=== PATIENT | female | born 1935 | race Caucasian/White ===

== ENCOUNTER 2016-10-31 08:13 | Inpatient (IN) | payer MEDICARE, OTHER ==
[~2016-10-31] VITALS: Ht 160 cm; Wt 51.7 kg
[2016-10-31] MEDS ORDERED: LORA10TA75 PO (08:50)
[2016-10-31] MEDS ORDERED: POTA25TA PO (08:50)
[2016-10-31] MEDS ORDERED: CARV3.1212 PO (08:50)
[2016-10-31] MEDS ORDERED: LOSA25TA5 PO (08:50)
[2016-10-31] MEDS ORDERED: HYDR12.58 PO (08:50)
[2016-10-31] MEDS ORDERED: ONDANSETRON 2MG/ML, 2ML IVPush ONE (09:00)
[2016-10-31] MEDS ORDERED: SODIUM CHLORIDE 0.9% 1,000ML IVBOLUS ONE (09:00)
[2016-10-31] MEDS ORDERED: SODIUM CHLORIDE FLUSH 10ML SYR IVF ONE (09:00)
[2016-10-31] MEDS ORDERED: MORPHINE SULFATE 4 MG/ML, 1ML ONE ×3 (09:08→20:48)
[2016-10-31] MEDS ORDERED: ONDANSETRON 2MG/ML, 2ML ONE (09:08)
[2016-10-31] MEDS: MORPHINE SULFATE 4 MG/ML, 1ML IVPush PRN ×2 (09:14→14:17)
[2016-10-31 09:19] LABS: ASPARTATE AMINO TRANSFERASE 30 U/L (15-37); BLOOD UREA NITROGEN 18 mg/dL (7-18)
[2016-10-31] MEDS ORDERED: OMNIPAQUE 350 MG/ML, 100ML BOTTLE ONE (10:46)
[2016-10-31] MEDS ORDERED: MORPHINE SULFATE 4 MG/ML, 1ML IVPush PRN (14:00)
[2016-10-31] MEDS: SODIUM CHLORIDE 0.9% 1,000 ML IV SCH (14:35)
[2016-10-31] MEDS ORDERED: LABETALOL 5MG/ML 40ML VIAL IVPush PRN (15:00)
[2016-10-31 16:21] VITALS: BP 151/81
[2016-10-31] MEDS ORDERED: LORATADINE 10 MG TABLET PO PRN (18:30)
[2016-10-31 18:46] VITALS: BP 153/62
[2016-10-31] MEDS: LOVASTATIN 40 MG TABLET PO SCH (20:36)
[2016-10-31] MEDS: CARVEDILOL 3.125 MG TABLET PO SCH (20:36)
[2016-10-31] MEDS: AMLODIPINE 5 MG TABLET PO SCH (20:36)
[2016-10-31] MEDS: BRIMONIDINE TARTRATE OPHTH 0.15%, 5ML EACHEYE SCH (20:44)
[2016-10-31] MEDS: morphine SULFATE 10 MG/ML, 1ML IVPush PRN (20:55)
[2016-10-31] MEDS: LATANOPROST OPHTH 0.005%, 2.5ML EACHEYE SCH (22:05)
[2016-11-01 02:18] VITALS: BP 125/66
[2016-11-01 05:45] LABS: BLOOD UREA NITROGEN 9 mg/dL (7-18)
[2016-11-01] MEDS: morphine SULFATE 10 MG/ML, 1ML IVPush PRN ×3 (05:47→12:34)
[2016-11-01 05:49] LABS: ASPARTATE AMINO TRANSFERASE 21 U/L (15-37)
[2016-11-01 05:50] VITALS: BP 163/74
[2016-11-01] MEDS: CARVEDILOL 3.125 MG TABLET PO SCH ×2 (06:00→17:46)
[2016-11-01] MEDS: BRIMONIDINE TARTRATE OPHTH 0.15%, 5ML EACHEYE SCH ×3 (06:00→20:30)
[2016-11-01] MEDS ORDERED: POTASSIUM CHLORIDE 40 MEQ in SODIUM CHLORIDE 0.9% 500 ML IV ONE (07:00)
[2016-11-01 07:16] VITALS: BP 124/65
[2016-11-01] MEDS: HYDROCHLOROTHIAZIDE 12.5 MG CAPSULE PO SCH (08:15)
[2016-11-01] MEDS: K-LYTE 25 MEQ TABLET.EFF PO SCH (08:15)
[2016-11-01] MEDS: LOSARTAN 25MG TABLET PO SCH (08:15)
[2016-11-01] MEDS: SODIUM CHLORIDE 0.9% 1,000 ML IV SCH ×2 (08:21→23:02)
[2016-11-01 14:21] VITALS: BP 111/61
[2016-11-01] MEDS: ONDANSETRON 2MG/ML, 2ML IVPush PRN (18:20)
[2016-11-01 19:12] VITALS: BP 155/76
[2016-11-01] MEDS: LOVASTATIN 40 MG TABLET PO SCH (20:29)
[2016-11-01] MEDS: AMLODIPINE 5 MG TABLET PO SCH (20:29)
[2016-11-01] MEDS: LATANOPROST OPHTH 0.005%, 2.5ML EACHEYE SCH (21:00)
[2016-11-02 01:07] VITALS: BP 142/68
[2016-11-02] MEDS: morphine SULFATE 10 MG/ML, 1ML IVPush PRN ×2 (05:10→08:02)
[2016-11-02] MEDS: ONDANSETRON 2MG/ML, 2ML IVPush PRN (05:25)
[2016-11-02] MEDS: CARVEDILOL 3.125 MG TABLET PO SCH ×2 (06:00→15:46)
[2016-11-02] MEDS: BRIMONIDINE TARTRATE OPHTH 0.15%, 5ML EACHEYE SCH ×3 (06:00→20:01)
[2016-11-02 06:54] VITALS: BP 142/68
[2016-11-02] MEDS ORDERED: DOCUSATE 100 MG CAPSULE PO PRN (08:00)
[2016-11-02] MEDS: HYDROCHLOROTHIAZIDE 12.5 MG CAPSULE PO SCH (08:02)
[2016-11-02] MEDS: K-LYTE 25 MEQ TABLET.EFF PO SCH (08:02)
[2016-11-02] MEDS: LOSARTAN 25MG TABLET PO SCH (08:02)
[2016-11-02] MEDS: SODIUM CHLORIDE 0.9% 1,000 ML IV SCH ×2 (10:13→15:46)
[2016-11-02] MEDS ORDERED: PROPOFOL 10 MG/ML, 20ML ONE (12:47)
[2016-11-02] MEDS ORDERED: METOCLOPRAMIDE 5 MG/ML, 2ML IV PRN ×2 (13:30→13:36)
[2016-11-02] MEDS ORDERED: ALBUTEROL SULFATE 2.5 MG/3 ML NPPB PRN (13:30)
[2016-11-02] MEDS ORDERED: FENTANYL PF 100 MCG/2ML IV PRN (13:30)
[2016-11-02] MEDS ORDERED: LABETALOL 5MG/ML, 20ML IV PRN (13:30)
[2016-11-02] MEDS ORDERED: EPHEDRINE 50 MG/ML, 1ML IVPush PRN (13:30)
[2016-11-02] MEDS ORDERED: ONDANSETRON 2MG/ML, 2ML IVPush PRN (13:30)
[2016-11-02] MEDS ORDERED: HYDROmorphone 1 MG/ML, 1ML IV PRN (13:30)
[2016-11-02 14:26] VITALS: BP 159/69
[2016-11-02] MEDS ORDERED: BRIMONIDINE TARTRATE OPHTH 0.15%, 5ML EACHEYE SCH (14:50)
[2016-11-02 18:58] VITALS: BP 152/69
[2016-11-02] MEDS: LATANOPROST OPHTH 0.005%, 2.5ML EACHEYE SCH (20:02)
[2016-11-02] MEDS: LOVASTATIN 40 MG TABLET PO SCH (20:02)
[2016-11-02] MEDS: AMLODIPINE 5 MG TABLET PO SCH (20:02)
[2016-11-02] MEDS: POLYETHYLENE GLYCOL 17 GM PACKET PO SCH (20:03)
[2016-11-03] MEDS ORDERED: CALCIUM CARBONATE 500 MG TAB.CHEW PO PRN (02:30)
[2016-11-03 02:33] VITALS: BP 131/58
[2016-11-03] MEDS: BRIMONIDINE TARTRATE OPHTH 0.15%, 5ML EACHEYE SCH ×3 (05:29→19:50)
[2016-11-03] MEDS: CARVEDILOL 3.125 MG TABLET PO SCH ×2 (05:29→17:44)
[2016-11-03 07:59] VITALS: BP 166/88
[2016-11-03] MEDS: K-LYTE 25 MEQ TABLET.EFF PO SCH (09:10)
[2016-11-03] MEDS: morphine SULFATE 10 MG/ML, 1ML IVPush PRN ×2 (09:10→17:44)
[2016-11-03] MEDS: HYDROCHLOROTHIAZIDE 12.5 MG CAPSULE PO SCH (09:10)
[2016-11-03] MEDS: LOSARTAN 25MG TABLET PO SCH (09:10)
[2016-11-03] MEDS ORDERED: HYDROmorphone 1 MG/ML, 1ML IV ONE (11:00)
[2016-11-03 12:17] VITALS: BP 147/74
[2016-11-03] MEDS: SODIUM CHLORIDE 0.9% 1,000 ML IV SCH (14:37)
[2016-11-03] MEDS ORDERED: MAGNESIUM CITRATE 300ML ORAL SOL PO ONE (15:30)
[2016-11-03 19:06] VITALS: BP 138/67
[2016-11-03] MEDS: LATANOPROST OPHTH 0.005%, 2.5ML EACHEYE SCH (19:50)
[2016-11-03] MEDS: AMLODIPINE 5 MG TABLET PO SCH (19:51)
[2016-11-03] MEDS: LOVASTATIN 40 MG TABLET PO SCH (19:51)
[2016-11-03] MEDS: POLYETHYLENE GLYCOL 17 GM PACKET PO SCH (19:51)
[2016-11-04 02:41] VITALS: BP 103/55
[2016-11-04] MEDS: CARVEDILOL 3.125 MG TABLET PO SCH (05:38)
[2016-11-04] MEDS: BRIMONIDINE TARTRATE OPHTH 0.15%, 5ML EACHEYE SCH (05:38)
[2016-11-04] MEDS: SODIUM CHLORIDE 0.9% 1,000 ML IV SCH (05:38)
[2016-11-04 07:03] VITALS: BP 146/70
[2016-11-04] MEDS: K-LYTE 25 MEQ TABLET.EFF PO SCH (07:52)
[2016-11-04] MEDS: LOSARTAN 25MG TABLET PO SCH (07:52)
[2016-11-04] MEDS ORDERED: LOVA20TA2 PO (08:34)
[2016-11-04] MEDS ORDERED: LATA2.5D3 EACHEYE (08:34)
[2016-11-04] MEDS ORDERED: CALC300T5 PO (08:34)
[2016-11-04] MEDS ORDERED: BRIM10DR7 EACHEYE (08:34)
[2016-11-04] MEDS ORDERED: AMLO5TAB4 PO (08:34)
[2016-11-04 12:47] VITALS: BP 145/76
== END 2016-11-04 13:59 | disposition home or self-care (01) | DRG 392 ==
LOC: ED 08:32 → EDIP 13:46 → 3NE 15:43
PROVIDERS: ADMIT Internal Medicine; ATTEND Hospitalist
PROC: 0DB68ZX Excision of Stomach, Via Natural or Artificial Opening Endoscopic, Diagnostic (ICD-10-PCS; 2016-11-02)
PROC: 0DB98ZX Excision of Duodenum, Via Natural or Artificial Opening Endoscopic, Diagnostic (ICD-10-PCS; principal; 2016-11-02 09:30)
DX: K29.80 Duodenitis without bleeding (principal); E87.1 Hypo-osmolality and hyponatremia; K57.30 Diverticulosis of large intestine without perforation or abscess without bleeding; E78.5 Hyperlipidemia, unspecified; F41.9 Anxiety disorder, unspecified; H40.9 Unspecified glaucoma; I11.9 Hypertensive heart disease without heart failure; K21.9 Gastro-esophageal reflux disease without esophagitis; K29.70 Gastritis, unspecified, without bleeding; K52.9 Noninfective gastroenteritis and colitis, unspecified; K59.01 Slow transit constipation; Z66 Do not resuscitate; Z96.642 Presence of left artificial hip joint; R73.9 Hyperglycemia, unspecified; Z82.49 Family history of ischemic heart disease and other diseases of the circulatory system
CPT/HCPCS: 36415; 74000; 74177; 76700; 80053; 81001; 83605; 83690; 85025; 87046; 87324; 87899; 88305; 89055; 93005; 96361; 96374; 96375; 96376; J1170; J2405; J2704; Q9967; J2270; J7030

== ENCOUNTER 2016-11-07 10:30 | Inpatient (IN) | payer MEDICARE, OTHER ==
[~2016-11-07] VITALS: Ht 160 cm; Wt 51.0 kg
[~2016-11-07 10:30] MED LIST: AMLO5TAB4 PO; BRIM10DR7 EACHEYE; CALC300T5 PO; CARV3.1212 PO; HYDR12.58 PO; LATA2.5D3 EACHEYE; LORA10TA75 PO; LOSA25TA5 PO; LOVA20TA2 PO; POTA25TA PO
[2016-11-07] MEDS ORDERED: ONDANSETRON 2MG/ML, 2ML ONE (11:18)
[2016-11-07] MEDS ORDERED: MORPHINE SULFATE 4 MG/ML, 1ML ONE ×3 (11:18→21:55)
[2016-11-07] MEDS: MORPHINE SULFATE 4 MG/ML, 1ML IVPush PRN ×2 (11:26→15:05)
[2016-11-07] MEDS ORDERED: ONDANSETRON 2MG/ML, 2ML IVPush ONE (11:30)
[2016-11-07] MEDS ORDERED: SODIUM CHLORIDE FLUSH 10ML SYR IVF ONE (11:30)
[2016-11-07 11:34] LABS: HEMATOCRIT 46.8 % (34.6-47.8); HEMOGLOBIN 15.9 g/dL (11.7-16.4); WHITE BLOOD COUNT 6.9 x10^3/uL (3.4-10)
[2016-11-07 11:46] LABS: BLOOD UREA NITROGEN 12 mg/dL (7-18)
[2016-11-07 11:51] LABS: ASPARTATE AMINO TRANSFERASE 22 U/L (15-37)
[2016-11-07 11:54] LABS: IS PT STATUS REG ER OR PRE ER? YES
[2016-11-07] MEDS ORDERED: OMNIPAQUE 350 MG/ML, 100ML BOTTLE ONE (13:37)
[2016-11-07] MEDS ORDERED: SODIUM CHLORIDE 0.9% 1,000 ML IV ONE (14:30)
[2016-11-07] MEDS ORDERED: ENALAPRILAT 1.25 MG/ML, 2ML IVPush PRN (16:00)
[2016-11-07] MEDS: SUCRALFATE 1 GM/10 ML UDC PO SCH ×2 (16:00→20:20)
[2016-11-07] MEDS ORDERED: MAALOX/HYOSCYAMINE/LIDOCAINE 45 ML BTL PO PRN (16:00)
[2016-11-07] MEDS ORDERED: ACETAMINOPHEN 325 MG TABLET PO PRN (16:00)
[2016-11-07] MEDS: BRIMONIDINE TARTRATE OPHTH 0.15%, 5ML EACHEYE SCH ×2 (16:00→21:00)
[2016-11-07] MEDS ORDERED: CALCIUM CARBONATE 500 MG TAB.CHEW PO PRN (16:00)
[2016-11-07 20:00] VITALS: BP 122/68
[2016-11-07] MEDS: PANTOPRAZOLE 40 MG IV IVPush SCH (20:19)
[2016-11-07] MEDS: CARVEDILOL 3.125 MG TABLET PO SCH (20:19)
[2016-11-07] MEDS: LOVASTATIN 40 MG TABLET PO SCH (20:20)
[2016-11-07] MEDS: LATANOPROST OPHTH 0.005%, 2.5ML EACHEYE SCH (21:00)
[2016-11-07] MEDS ORDERED: TEMAZEPAM 15 MG CAPSULE PO PRN (21:00)
[2016-11-07] MEDS: morphine SULFATE 10 MG/ML, 1ML IVPush PRN (21:57)
[2016-11-08 02:00] VITALS: BP 112/61
[2016-11-08 06:15] LABS: BLOOD UREA NITROGEN 16 mg/dL (7-18)
[2016-11-08 06:19] LABS: ASPARTATE AMINO TRANSFERASE 19 U/L (15-37)
[2016-11-08] MEDS: SUCRALFATE 1 GM/10 ML UDC PO SCH ×4 (07:00→22:18)
[2016-11-08 07:05] VITALS: BP 125/63
[2016-11-08] MEDS: ONDANSETRON 2MG/ML, 2ML IVPush PRN ×2 (08:56→17:57)
[2016-11-08] MEDS: BRIMONIDINE TARTRATE OPHTH 0.15%, 5ML EACHEYE SCH ×4 (09:00→22:19)
[2016-11-08] MEDS: LORATADINE 10 MG TABLET PO SCH (10:25)
[2016-11-08] MEDS: PANTOPRAZOLE 40 MG IV IVPush SCH ×2 (10:26→22:18)
[2016-11-08] MEDS: POTASSIUM CHLORIDE 20 MEQ TAB.ER.PRT PO SCH ×3 (10:26→22:18)
[2016-11-08] MEDS: LOSARTAN 25MG TABLET PO SCH (10:26)
[2016-11-08] MEDS: AMLODIPINE 5 MG TABLET PO SCH (10:27)
[2016-11-08] MEDS: CARVEDILOL 3.125 MG TABLET PO SCH ×2 (10:28→22:18)
[2016-11-08] MEDS: POLYETHYLENE GLYCOL 17 GM PACKET PO SCH (10:28)
[2016-11-08 13:30] VITALS: BP 103/56
[2016-11-08] MEDS: SODIUM CHLORIDE 0.9% 1,000 ML IV SCH (17:04)
[2016-11-08] MEDS: morphine SULFATE 10 MG/ML, 1ML IVPush PRN (17:56)
[2016-11-08] MEDS: HYDROcodone/APAP 5/325 TABLET PO PRN (20:02)
[2016-11-08 20:05] VITALS: BP 127/66
[2016-11-08] MEDS: LOVASTATIN 40 MG TABLET PO SCH (22:18)
[2016-11-08] MEDS: LATANOPROST OPHTH 0.005%, 2.5ML EACHEYE SCH (22:19)
[2016-11-09 02:00] VITALS: BP 107/63
[2016-11-09] MEDS: SODIUM CHLORIDE 0.9% 1,000 ML IV SCH (03:05)
[2016-11-09 06:03] LABS: BLOOD UREA NITROGEN 13 mg/dL (7-18)
[2016-11-09 07:25] VITALS: BP 112/59
[2016-11-09] MEDS ORDERED: OMEP-110 PO (08:13)
[2016-11-09] MEDS ORDERED: Maalox/Hyoscyamine/Lidocaine PO (08:13)
[2016-11-09] MEDS ORDERED: SUCR1ORA5 PO (08:13)
[2016-11-09] MEDS ORDERED: HYDR-3240 PO (08:13)
[2016-11-09] MEDS ORDERED: TRAM50TA2 PO (08:13)
[2016-11-09] MEDS ORDERED: POLY17PO5 PO (08:13)
[2016-11-09] MEDS: HYDROcodone/APAP 5/325 TABLET PO PRN (08:17)
[2016-11-09] MEDS: PANTOPRAZOLE 40 MG IV IVPush SCH (08:24)
[2016-11-09] MEDS: SUCRALFATE 1 GM/10 ML UDC PO SCH (08:24)
[2016-11-09] MEDS: LORATADINE 10 MG TABLET PO SCH (08:25)
[2016-11-09] MEDS: BRIMONIDINE TARTRATE OPHTH 0.15%, 5ML EACHEYE SCH (08:25)
[2016-11-09] MEDS: CARVEDILOL 3.125 MG TABLET PO SCH (08:32)
[2016-11-09] MEDS: POLYETHYLENE GLYCOL 17 GM PACKET PO SCH (08:32)
[2016-11-09] MEDS: LOSARTAN 25MG TABLET PO SCH (08:32)
[2016-11-09] MEDS: AMLODIPINE 5 MG TABLET PO SCH (08:32)
[2016-11-09] MEDS: POTASSIUM CHLORIDE 20 MEQ TAB.ER.PRT PO SCH (08:32)
[2016-11-09] MEDS ORDERED: ONDA4TAB13 SL (08:54)
[2016-11-09] MEDS ORDERED: FUROSEMIDE 40 MG/4 ML IV SCH (09:00)
== END 2016-11-09 10:27 | disposition home or self-care (01) | DRG 392 ==
LOC: ED 11:59 → EDIP 14:10 → 4WST 16:18 → DCLOUNGE 11-09 09:51
PROVIDERS: ADMIT Internal Medicine; ATTEND Internal Medicine
DX: K29.80 Duodenitis without bleeding (principal); R64 Cachexia; E44.0 Moderate protein-calorie malnutrition; E87.1 Hypo-osmolality and hyponatremia; Z68.1 Body mass index [BMI] 19.9 or less, adult; E78.5 Hyperlipidemia, unspecified; I10 Essential (primary) hypertension; K21.9 Gastro-esophageal reflux disease without esophagitis; Z66 Do not resuscitate; Z96.642 Presence of left artificial hip joint; Z88.6 Allergy status to analgesic agent; K57.30 Diverticulosis of large intestine without perforation or abscess without bleeding; K59.09 Other constipation; K29.70 Gastritis, unspecified, without bleeding
CPT/HCPCS: 36415; 71275; 72072; 74022; 80048; 80053; 81001; 83605; 83690; 83735; 84100; 84439; 84443; 84484; 85025; 85379; 93005; 96374; 96375; 96376; J1940; J2405; Q9967; C9113; J2270; J7030

== ENCOUNTER → 2016-11-11 | Outpatient (CLI) | payer MEDICARE, OTHER ==
[~2016-11-11] MED LIST changes: +ASPI-496 PO; +CARV25TA PO; +HYDR-3240 PO; +HYDR25TA6 PO; +Maalox/Hyoscyamine/Lidocaine PO; +OMEP-110 PO; +OMNIPAQUE 350 MG/ML, 100ML BOTTLE ONE; +ONDA4TAB13 SL; +POLY17PO5 PO; +POTA20TA37 PO; +SUCR1ORA2 PO; +TRAM50TA2 PO
== END | disposition home or self-care (01) ==
LOC: RAD 18:18
PROVIDERS: ATTEND Internal Medicine
DX: N28.1 Cyst of kidney, acquired (principal); K57.30 Diverticulosis of large intestine without perforation or abscess without bleeding; Z96.642 Presence of left artificial hip joint
CPT/HCPCS: 74177; Q9967

== ENCOUNTER 2016-11-12 16:27 | Inpatient (IN) | payer MEDICARE, OTHER ==
[~2016-11-12] VITALS: Ht 160 cm; Wt 50.0 kg
[~2016-11-12 16:27] MED LIST changes: -ASPI-496 PO; -CARV25TA PO; -HYDR25TA6 PO; -OMNIPAQUE 350 MG/ML, 100ML BOTTLE ONE; -POTA20TA37 PO
[2016-11-12] MEDS ORDERED: SODIUM CHLORIDE FLUSH 10ML SYR IVF ONE (17:00)
[2016-11-12] MEDS ORDERED: ONDANSETRON 2MG/ML, 2ML IVPush ONE (17:00)
[2016-11-12] MEDS ORDERED: SODIUM CHLORIDE 0.9% 1,000ML IVBOLUS ONE (17:00)
[2016-11-12 17:09] LABS: HEMATOCRIT 46.6 % (34.6-47.8); HEMOGLOBIN 15.6 g/dL (11.7-16.4); WHITE BLOOD COUNT 6.4 x10^3/uL (3.4-10)
[2016-11-12 17:20] LABS: ASPARTATE AMINO TRANSFERASE 23 U/L (15-37); BLOOD UREA NITROGEN 10 mg/dL (7-18)
[2016-11-12 17:26] LABS: IS PT STATUS REG ER OR PRE ER? YES
[2016-11-12] MEDS ORDERED: ONDANSETRON 2MG/ML, 2ML ONE (17:32)
[2016-11-12] MEDS ORDERED: CARV25TA PO (17:42)
[2016-11-12] MEDS ORDERED: POTA20TA37 PO (17:42)
[2016-11-12] MEDS ORDERED: HYDR25TA6 PO (17:44)
[2016-11-12] MEDS ORDERED: ASPI-496 PO (17:44)
[2016-11-12] MEDS ORDERED: MORPHINE SULFATE 4 MG/ML, 1ML IVPush ONE (18:30)
[2016-11-12] MEDS ORDERED: MORPHINE SULFATE 4 MG/ML, 1ML ONE (18:43)
[2016-11-12] MEDS ORDERED: POLYETHYLENE GLYCOL 17 GM PACKET PO PRN (20:00)
[2016-11-12] MEDS ORDERED: BISACODYL 10 MG SUPP PR PRN (20:00)
[2016-11-12] MEDS ORDERED: CALCIUM CARBONATE 500 MG TAB.CHEW PO PRN (20:00)
[2016-11-12] MEDS ORDERED: ACETAMINOPHEN 325 MG TABLET PO PRN (20:00)
[2016-11-12] MEDS: BRIMONIDINE TARTRATE OPHTH 0.15%, 5ML EACHEYE SCH (21:00)
[2016-11-12] MEDS ORDERED: LATANOPROST OPHTH 0.005%, 2.5ML EACHEYE SCH (21:00)
[2016-11-12] MEDS: SODIUM CHLORIDE 0.9% 1,000 ML IV SCH (21:21)
[2016-11-12] MEDS: OMEPRAZOLE 20 MG CAPSULE.DR PO SCH (21:22)
[2016-11-12] MEDS: HEPARIN 5,000 UNITS/ML, 1ML SQ SCH (21:22)
[2016-11-12] MEDS: SUCRALFATE 1 GM/10 ML UDC PO SCH (21:23)
[2016-11-12] MEDS: LOVASTATIN 40 MG TABLET PO SCH (21:23)
[2016-11-12] MEDS: CARVEDILOL 25 MG TABLET PO SCH (21:23)
[2016-11-12] MEDS: MAALOX/HYOSCYAMINE/LIDOCAINE 45 ML BTL PO PRN (21:25)
[2016-11-12 21:55] VITALS: BP 146/72
[2016-11-13] MEDS: ONDANSETRON 2MG/ML, 2ML IVPush PRN (01:00)
[2016-11-13] MEDS: HYDROcodone/APAP 5/325 TABLET PO PRN ×3 (01:01→23:25)
[2016-11-13 01:09] VITALS: BP 128/70
[2016-11-13] MEDS: HEPARIN 5,000 UNITS/ML, 1ML SQ SCH ×3 (05:23→21:45)
[2016-11-13 05:32] VITALS: BP 150/76
[2016-11-13 05:41] LABS: HEMATOCRIT 37.5 % (34.6-47.8); HEMOGLOBIN 12.6 g/dL (11.7-16.4); WHITE BLOOD COUNT 3.5 x10^3/uL (3.4-10)
[2016-11-13 05:55] LABS: ASPARTATE AMINO TRANSFERASE 15 U/L (15-37); BLOOD UREA NITROGEN 8 mg/dL (7-18)
[2016-11-13 07:12] VITALS: BP 161/67
[2016-11-13] MEDS: LOSARTAN 25MG TABLET PO SCH (08:23)
[2016-11-13] MEDS: CARVEDILOL 25 MG TABLET PO SCH ×2 (08:23→21:43)
[2016-11-13] MEDS: AMLODIPINE 5 MG TABLET PO SCH (09:00)
[2016-11-13] MEDS: HYDROCHLOROTHIAZIDE 25 MG TABLET PO SCH (09:00)
[2016-11-13] MEDS: SENNA/DOCUSATE TABLET PO SCH (09:00)
[2016-11-13] MEDS: BRIMONIDINE TARTRATE OPHTH 0.15%, 5ML EACHEYE SCH ×3 (09:00→21:00)
[2016-11-13] MEDS: POLYETHYLENE GLYCOL 17 GM PACKET PO SCH (09:00)
[2016-11-13] MEDS: ASPIRIN 81 MG TABLET EC PO SCH (09:00)
[2016-11-13] MEDS: OMEPRAZOLE 20 MG CAPSULE.DR PO SCH ×2 (09:00→21:43)
[2016-11-13] MEDS: SUCRALFATE 1 GM/10 ML UDC PO SCH ×4 (09:02→21:44)
[2016-11-13 14:24] VITALS: BP 116/64
[2016-11-13] MEDS: SODIUM CHLORIDE 0.9% 1,000 ML IV SCH (16:12)
[2016-11-13] MEDS ORDERED: LOPERAMIDE 2 MG CAPSULE PO ONE (18:00)
[2016-11-13 19:28] VITALS: BP 124/64
[2016-11-13] MEDS ORDERED: ACETAMINOPHEN 325 MG TABLET PO PRN (20:00)
[2016-11-13] MEDS ORDERED: POLYETHYLENE GLYCOL 17 GM PACKET PO PRN (20:00)
[2016-11-13] MEDS ORDERED: BISACODYL 10 MG SUPP PR PRN (20:00)
[2016-11-13] MEDS: LATANOPROST OPHTH 0.005%, 2.5ML EACHEYE SCH (21:00)
[2016-11-13] MEDS: LOVASTATIN 40 MG TABLET PO SCH (21:44)
[2016-11-14 01:39] VITALS: BP 155/73
[2016-11-14] MEDS: SUCRALFATE 1 GM/10 ML UDC PO SCH ×4 (06:16→21:08)
[2016-11-14] MEDS: HEPARIN 5,000 UNITS/ML, 1ML SQ SCH ×3 (06:17→21:08)
[2016-11-14 07:30] VITALS: BP 148/68
[2016-11-14] MEDS: LOSARTAN 25MG TABLET PO SCH (09:30)
[2016-11-14] MEDS: HYDROCHLOROTHIAZIDE 25 MG TABLET PO SCH (09:30)
[2016-11-14] MEDS: CARVEDILOL 25 MG TABLET PO SCH ×2 (09:30→21:09)
[2016-11-14] MEDS: ASPIRIN 81 MG TABLET EC PO SCH (09:30)
[2016-11-14] MEDS: SENNA/DOCUSATE TABLET PO SCH (09:31)
[2016-11-14] MEDS: AMLODIPINE 5 MG TABLET PO SCH (09:31)
[2016-11-14] MEDS: POLYETHYLENE GLYCOL 17 GM PACKET PO SCH (09:31)
[2016-11-14] MEDS: OMEPRAZOLE 20 MG CAPSULE.DR PO SCH ×2 (09:31→21:09)
[2016-11-14] MEDS: SODIUM CHLORIDE 0.9% 1,000 ML IV SCH (09:33)
[2016-11-14] MEDS: BRIMONIDINE TARTRATE OPHTH 0.15%, 5ML EACHEYE SCH ×3 (09:35→21:00)
[2016-11-14] MEDS ORDERED: LOPERAMIDE 2 MG CAPSULE PO PRN (11:30)
[2016-11-14] MEDS: HYDROcodone/APAP 5/325 TABLET PO PRN ×2 (13:00→21:14)
[2016-11-14 14:07] VITALS: BP 117/68
[2016-11-14 19:05] VITALS: BP 144/68
[2016-11-14] MEDS: LATANOPROST OPHTH 0.005%, 2.5ML EACHEYE SCH (21:00)
[2016-11-14] MEDS: LOVASTATIN 40 MG TABLET PO SCH (21:09)
[2016-11-15 02:23] VITALS: BP 123/71
[2016-11-15 05:33] LABS: HEMATOCRIT 41.6 % (34.6-47.8); HEMOGLOBIN 13.5 g/dL (11.7-16.4)
[2016-11-15] MEDS: HEPARIN 5,000 UNITS/ML, 1ML SQ SCH ×3 (05:34→22:42)
[2016-11-15 06:16] LABS: ASPARTATE AMINO TRANSFERASE 16 U/L (15-37); BLOOD UREA NITROGEN 16 mg/dL (7-18)
[2016-11-15] MEDS: SUCRALFATE 1 GM/10 ML UDC PO SCH ×4 (06:34→21:00)
[2016-11-15] MEDS: OMEPRAZOLE 20 MG CAPSULE.DR PO SCH ×2 (08:18→21:00)
[2016-11-15] MEDS: AMLODIPINE 5 MG TABLET PO SCH (08:18)
[2016-11-15] MEDS: POTASSIUM CHLORIDE 20 MEQ TAB.ER.PRT PO SCH ×2 (08:18→21:00)
[2016-11-15] MEDS: POLYETHYLENE GLYCOL 17 GM PACKET PO SCH (08:19)
[2016-11-15] MEDS: HYDROCHLOROTHIAZIDE 25 MG TABLET PO SCH (08:19)
[2016-11-15] MEDS: ASPIRIN 81 MG TABLET EC PO SCH (08:19)
[2016-11-15] MEDS: SENNA/DOCUSATE TABLET PO SCH (08:19)
[2016-11-15] MEDS: CARVEDILOL 25 MG TABLET PO SCH ×2 (08:19→21:00)
[2016-11-15] MEDS: HYDROcodone/APAP 5/325 TABLET PO PRN ×3 (08:19→16:54)
[2016-11-15] MEDS: LOSARTAN 25MG TABLET PO SCH (08:19)
[2016-11-15] MEDS: BRIMONIDINE TARTRATE OPHTH 0.15%, 5ML EACHEYE SCH ×3 (08:22→21:00)
[2016-11-15 08:26] VITALS: BP 155/73
[2016-11-15] MEDS: ONDANSETRON 2MG/ML, 2ML IVPush PRN (13:57)
[2016-11-15 14:00] VITALS: BP 118/72
[2016-11-15 19:22] VITALS: BP 111/61
[2016-11-15] MEDS: LATANOPROST OPHTH 0.005%, 2.5ML EACHEYE SCH (21:00)
[2016-11-15] MEDS: LOVASTATIN 40 MG TABLET PO SCH (22:44)
[2016-11-16] MEDS: ONDANSETRON 2MG/ML, 2ML IVPush PRN ×4 (03:04→22:02)
[2016-11-16] MEDS: HYDROcodone/APAP 5/325 TABLET PO PRN ×2 (03:04→20:34)
[2016-11-16 03:15] VITALS: BP 136/73
[2016-11-16 05:30] LABS: BLOOD UREA NITROGEN 18 mg/dL (7-18)
[2016-11-16] MEDS: SUCRALFATE 1 GM/10 ML UDC PO SCH ×4 (05:58→20:34)
[2016-11-16] MEDS: HEPARIN 5,000 UNITS/ML, 1ML SQ SCH (05:59)
[2016-11-16 07:27] VITALS: BP 112/61
[2016-11-16] MEDS: CARVEDILOL 25 MG TABLET PO SCH ×2 (09:00→20:34)
[2016-11-16] MEDS: HYDROCHLOROTHIAZIDE 25 MG TABLET PO SCH (09:00)
[2016-11-16] MEDS: POLYETHYLENE GLYCOL 17 GM PACKET PO SCH (09:00)
[2016-11-16] MEDS: ASPIRIN 81 MG TABLET EC PO SCH (09:00)
[2016-11-16] MEDS: AMLODIPINE 5 MG TABLET PO SCH (09:00)
[2016-11-16] MEDS: SENNA/DOCUSATE TABLET PO SCH (09:00)
[2016-11-16] MEDS: LOSARTAN 25MG TABLET PO SCH (09:00)
[2016-11-16] MEDS: OMEPRAZOLE 20 MG CAPSULE.DR PO SCH ×2 (09:00→20:35)
[2016-11-16] MEDS: BRIMONIDINE TARTRATE OPHTH 0.15%, 5ML EACHEYE SCH ×3 (09:35→20:33)
[2016-11-16] MEDS ORDERED: D5%-0.9% NACL+KCL 20MEQ 1,000 ML IV SCH (10:00)
[2016-11-16] MEDS: MORPHINE SULFATE 4 MG/ML, 1ML IVPush PRN ×3 (11:37→23:39)
[2016-11-16 13:53] VITALS: BP 148/81
[2016-11-16] MEDS: CEFOTETAN PMX 2GM/50ML 50 ML IV SCH (18:05)
[2016-11-16 19:48] VITALS: BP 164/70
[2016-11-16] MEDS: LATANOPROST OPHTH 0.005%, 2.5ML EACHEYE SCH (20:33)
[2016-11-16] MEDS: LOVASTATIN 40 MG TABLET PO SCH (20:35)
[2016-11-17 01:08] VITALS: BP 119/68
[2016-11-17] MEDS: ONDANSETRON 2MG/ML, 2ML IVPush PRN (04:53)
[2016-11-17] MEDS: CEFOTETAN PMX 2GM/50ML 50 ML IV SCH (04:53)
[2016-11-17] MEDS: MORPHINE SULFATE 4 MG/ML, 1ML IVPush PRN (04:54)
[2016-11-17 05:00] VITALS: BP 145/65
[2016-11-17] MEDS ORDERED: FENTANYL PF 250 MCG/5ML ONE (06:27)
[2016-11-17] MEDS ORDERED: BUPIVACAINE/PF 0.25% ONE (06:45)
[2016-11-17] MEDS ORDERED: EPINEPHRINE 1 MG/ML, 1ML ONE (06:45)
[2016-11-17] MEDS ORDERED: ONDANSETRON 2MG/ML, 2ML IVPush PRN (07:00)
[2016-11-17] MEDS ORDERED: LABETALOL 5MG/ML, 20ML IV PRN (07:00)
[2016-11-17] MEDS ORDERED: PROMETHAZINE 25 MG/ML, 1ML IV PRN (07:00)
[2016-11-17] MEDS ORDERED: MEPERIDINE/PF 25MG/0.5ML IVPush PRN (07:00)
[2016-11-17] MEDS: SUCRALFATE 1 GM/10 ML UDC PO SCH ×4 (07:00→20:50)
[2016-11-17] MEDS ORDERED: OXYcodone 5 MG/5 ML ORAL.SOL UDC PO PRN (07:00)
[2016-11-17] MEDS ORDERED: HYDROmorphone 1 MG/ML, 1ML IV PRN (07:00)
[2016-11-17] MEDS ORDERED: hydrALAzine 20 MG/ML, 1ML IV PRN (07:00)
[2016-11-17] MEDS ORDERED: NEOSTIGMINE 1 MG/ML, 10ML ONE (07:05)
[2016-11-17] MEDS ORDERED: DEXAMETHASONE 4 MG/ML, 1ML ONE (07:05)
[2016-11-17] MEDS ORDERED: GLYCOPYRROLATE 0.2MG/1ML ONE (07:05)
[2016-11-17] MEDS ORDERED: ONDANSETRON 2MG/ML, 2ML ONE ×2 (07:05→07:54)
[2016-11-17] MEDS ORDERED: ROCURONIUM 10 MG/ML ONE (07:05)
[2016-11-17] MEDS ORDERED: PROPOFOL 10 MG/ML, 20ML ONE (07:05)
[2016-11-17] MEDS ORDERED: FENTANYL PF 100 MCG/2ML ONE (07:54)
[2016-11-17] MEDS: FENTANYL PF 100 MCG/2ML IV PRN ×2 (07:57→08:21)
[2016-11-17] MEDS ORDERED: OXYcodone 5 MG/5 ML ORAL.SOL UDC ONE (08:03)
[2016-11-17] MEDS ORDERED: hydrALAzine 20 MG/ML, 1ML ONE (08:11)
[2016-11-17] MEDS: POLYETHYLENE GLYCOL 17 GM PACKET PO SCH (09:00)
[2016-11-17 09:08] VITALS: BP 114/61
[2016-11-17] MEDS ORDERED: morphine SULFATE 10 MG/ML, 1ML IV PRN (10:00)
[2016-11-17] MEDS ORDERED: D5%-0.9% NACL+KCL 20MEQ 1,000 ML IV SCH (10:00)
[2016-11-17] MEDS: LACTATED RINGERS 1,000 ML IV SCH ×2 (10:23→23:41)
[2016-11-17] MEDS: BRIMONIDINE TARTRATE OPHTH 0.15%, 5ML EACHEYE SCH ×3 (10:27→20:53)
[2016-11-17] MEDS: SENNA/DOCUSATE TABLET PO SCH (13:19)
[2016-11-17] MEDS: OMEPRAZOLE 20 MG CAPSULE.DR PO SCH ×2 (13:20→20:50)
[2016-11-17] MEDS: LOSARTAN 25MG TABLET PO SCH (13:20)
[2016-11-17] MEDS: CARVEDILOL 25 MG TABLET PO SCH ×2 (13:20→20:51)
[2016-11-17] MEDS: ASPIRIN 81 MG TABLET EC PO SCH (13:20)
[2016-11-17] MEDS: HYDROCHLOROTHIAZIDE 25 MG TABLET PO SCH (13:20)
[2016-11-17] MEDS: AMLODIPINE 5 MG TABLET PO SCH (13:20)
[2016-11-17 14:00] VITALS: BP 138/72
[2016-11-17 19:04] VITALS: BP 157/72
[2016-11-17] MEDS: HYDROcodone/APAP 5/325 TABLET PO PRN ×2 (19:39→23:42)
[2016-11-17] MEDS: LOVASTATIN 40 MG TABLET PO SCH (20:50)
[2016-11-17] MEDS: LATANOPROST OPHTH 0.005%, 2.5ML EACHEYE SCH (20:53)
[2016-11-18 00:22] VITALS: BP 135/70
[2016-11-18] MEDS: HYDROcodone/APAP 5/325 TABLET PO PRN ×3 (04:00→20:09)
[2016-11-18 07:00] VITALS: BP 129/69
[2016-11-18] MEDS: CARVEDILOL 25 MG TABLET PO SCH ×2 (08:45→20:09)
[2016-11-18] MEDS: SUCRALFATE 1 GM/10 ML UDC PO SCH ×4 (08:45→20:09)
[2016-11-18] MEDS: LOSARTAN 25MG TABLET PO SCH (08:45)
[2016-11-18] MEDS: AMLODIPINE 5 MG TABLET PO SCH (08:46)
[2016-11-18] MEDS: ASPIRIN 81 MG TABLET EC PO SCH (08:46)
[2016-11-18] MEDS: HYDROCHLOROTHIAZIDE 25 MG TABLET PO SCH (08:46)
[2016-11-18] MEDS: SENNA/DOCUSATE TABLET PO SCH (08:47)
[2016-11-18] MEDS: POLYETHYLENE GLYCOL 17 GM PACKET PO SCH (08:49)
[2016-11-18] MEDS: OMEPRAZOLE 20 MG CAPSULE.DR PO SCH ×2 (08:49→20:09)
[2016-11-18] MEDS: BRIMONIDINE TARTRATE OPHTH 0.15%, 5ML EACHEYE SCH ×3 (08:50→20:10)
[2016-11-18] MEDS ORDERED: POTASSIUM CHLORIDE 20 MEQ TAB.ER.PRT PO SCH (09:00)
[2016-11-18 10:05] LABS: HEMATOCRIT 37.4 % (34.6-47.8); HEMOGLOBIN 12.4 g/dL (11.7-16.4); WHITE BLOOD COUNT 9.3 x10^3/uL (3.4-10)
[2016-11-18 10:08] LABS: ASPARTATE AMINO TRANSFERASE 34 U/L (15-37); BLOOD UREA NITROGEN 9 mg/dL (7-18)
[2016-11-18] MEDS: POTASSIUM CHLORIDE 20 MEQ TAB.ER.PRT PO SCH (16:26)
[2016-11-18 18:49] VITALS: BP 152/71
[2016-11-18] MEDS: LOVASTATIN 40 MG TABLET PO SCH (20:09)
[2016-11-18] MEDS: LATANOPROST OPHTH 0.005%, 2.5ML EACHEYE SCH (20:10)
[2016-11-18] MEDS: MAALOX/HYOSCYAMINE/LIDOCAINE 45 ML BTL PO PRN (22:39)
[2016-11-19 02:45] VITALS: BP 145/70
[2016-11-19] MEDS: MAALOX/HYOSCYAMINE/LIDOCAINE 45 ML BTL PO PRN (03:33)
[2016-11-19] MEDS: HYDROcodone/APAP 5/325 TABLET PO PRN ×2 (03:35→13:46)
[2016-11-19 06:30] VITALS: BP 160/75
[2016-11-19] MEDS: SUCRALFATE 1 GM/10 ML UDC PO SCH ×2 (08:37→11:00)
[2016-11-19] MEDS: BRIMONIDINE TARTRATE OPHTH 0.15%, 5ML EACHEYE SCH (08:38)
[2016-11-19] MEDS: HYDROCHLOROTHIAZIDE 25 MG TABLET PO SCH (08:38)
[2016-11-19] MEDS: OMEPRAZOLE 20 MG CAPSULE.DR PO SCH (08:38)
[2016-11-19] MEDS: LOSARTAN 25MG TABLET PO SCH (08:38)
[2016-11-19] MEDS: CARVEDILOL 25 MG TABLET PO SCH (08:38)
[2016-11-19] MEDS: AMLODIPINE 5 MG TABLET PO SCH (08:38)
[2016-11-19] MEDS: ASPIRIN 81 MG TABLET EC PO SCH (08:38)
[2016-11-19] MEDS: POTASSIUM CHLORIDE 20 MEQ TAB.ER.PRT PO SCH (08:39)
[2016-11-19 12:43] VITALS: BP 142/69
[2016-11-19] MEDS ORDERED: AMOX1TAB64 PO (13:55)
== END 2016-11-19 15:29 | disposition home or self-care (01) | DRG 417 ==
LOC: ED 16:54 → EDIP 18:33 → 3NE 19:58
PROVIDERS: ADMIT Emergency Medicine; ATTEND Emergency Medicine
PROC: 0FT44ZZ Resection of Gallbladder, Percutaneous Endoscopic Approach (ICD-10-PCS; 2016-11-17)
PROC: CF241ZZ Tomographic (Tomo) Nuclear Medicine Imaging of Gallbladder using Technetium 99m (Tc-99m) (ICD-10-PCS; principal; 2016-11-17 07:00)
DX: K81.9 Cholecystitis, unspecified (principal); E43 Unspecified severe protein-calorie malnutrition; M48.54XA Collapsed vertebra, not elsewhere classified, thoracic region, initial encounter for fracture; Z68.1 Body mass index [BMI] 19.9 or less, adult; K29.70 Gastritis, unspecified, without bleeding; K21.9 Gastro-esophageal reflux disease without esophagitis; I10 Essential (primary) hypertension; E78.5 Hyperlipidemia, unspecified; K29.80 Duodenitis without bleeding; E87.6 Hypokalemia; K59.00 Constipation, unspecified; K82.8 Other specified diseases of gallbladder; Z96.642 Presence of left artificial hip joint; Z88.8 Allergy status to other drugs, medicaments and biological substances
CPT/HCPCS: 36415; 74177; 78227; 80048; 80053; 81003; 83605; 83690; 83735; 84100; 84484; 85025; 86677; 87324; 88304; 93005; 96361; 96374; 96375; J0171; J1100; J1644; J2405; J2704; J2710; J3010; J3490; Q9967; A9537; C9898; J0360; J3480; J7030; J7120; S0074

== ENCOUNTER 2016-11-23 13:52 | Inpatient (IN) | payer MEDICARE, OTHER ==
[~2016-11-23] VITALS: Ht 160 cm; Wt 48.6 kg
[~2016-11-23 13:52] MED LIST changes: +AMOX1TAB64 PO; +ASPI-496 PO; +CARV25TA PO; +HYDR25TA6 PO; +POTA20TA37 PO; -SUCR1ORA2 PO; +SUCR1ORA5 PO
[2016-11-23] MEDS ORDERED: SODIUM CHLORIDE FLUSH 10ML SYR IVF ONE (14:30)
[2016-11-23] MEDS ORDERED: ONDANSETRON 2MG/ML, 2ML IVPush ONE (14:30)
[2016-11-23] MEDS ORDERED: HYDROmorphone 1 MG/ML, 1ML IVPush PRN (14:30)
[2016-11-23] MEDS ORDERED: SODIUM CHLORIDE 0.9% 1,000ML IVBOLUS ONE (14:30)
[2016-11-23] MEDS ORDERED: HYDROmorphone 1 MG/ML, 1ML ONE (14:42)
[2016-11-23] MEDS ORDERED: ONDANSETRON 2MG/ML, 2ML ONE ×2 (14:42→17:16)
[2016-11-23 14:53] LABS: HEMATOCRIT 45.3 % (34.6-47.8); HEMOGLOBIN 15.2 g/dL (11.7-16.4)
[2016-11-23 15:02] LABS: BLOOD UREA NITROGEN 12 mg/dL (7-18)
[2016-11-23 15:05] LABS: ASPARTATE AMINO TRANSFERASE 23 U/L (15-37)
[2016-11-23] MEDS ORDERED: OMNIPAQUE 350 MG/ML, 100ML BOTTLE ONE (15:57)
[2016-11-23] MEDS ORDERED: PROMETHAZINE 25 MG/ML, 1ML IM ONE (17:00)
[2016-11-23] MEDS ORDERED: POLYETHYLENE GLYCOL 17 GM PACKET PO PRN (17:30)
[2016-11-23] MEDS ORDERED: DOCUSATE 100 MG CAPSULE PO PRN (17:30)
[2016-11-23] MEDS ORDERED: BISACODYL 10 MG SUPP PR PRN (17:30)
[2016-11-23] MEDS ORDERED: ACETAMINOPHEN 325 MG TABLET PO PRN (17:30)
[2016-11-23] MEDS ORDERED: LABETALOL 5MG/ML, 20ML IVPush PRN (17:30)
[2016-11-23] MEDS ORDERED: MAALOX/HYOSCYAMINE/LIDOCAINE 45 ML BTL PO PRN (18:00)
[2016-11-23] MEDS: NS + 20MEQ KCL 1,000 ML IV SCH (18:57)
[2016-11-23] MEDS: morphine SULFATE 10 MG/ML, 1ML IVPush PRN (19:36)
[2016-11-23 19:44] VITALS: BP 159/81
[2016-11-23] MEDS: BRIMONIDINE TARTRATE OPHTH 0.15%, 5ML EACHEYE SCH (20:56)
[2016-11-23] MEDS: ENOXAPARIN 40 MG/0.4 ML SQ SCH (20:57)
[2016-11-23] MEDS: LATANOPROST OPHTH 0.005%, 2.5ML EACHEYE SCH (20:57)
[2016-11-23] MEDS: CARVEDILOL 25 MG TABLET PO SCH (20:58)
[2016-11-23] MEDS: LOVASTATIN 40 MG TABLET PO SCH (20:58)
[2016-11-23] MEDS: SUCRALFATE 1 GM/10 ML UDC PO SCH (21:00)
[2016-11-23] MEDS: MAALOX/HYOSCYAMINE/LIDOCAINE 45 ML BTL PO PRN (21:00)
[2016-11-23] MEDS: ONDANSETRON 2MG/ML, 2ML IVPush PRN (21:19)
[2016-11-24 02:48] VITALS: BP 115/61
[2016-11-24] MEDS: ONDANSETRON 2MG/ML, 2ML IVPush PRN (04:09)
[2016-11-24] MEDS: MAALOX/HYOSCYAMINE/LIDOCAINE 45 ML BTL PO PRN ×2 (04:53→12:05)
[2016-11-24 05:09] LABS: HEMATOCRIT 37.8 % (34.6-47.8); HEMOGLOBIN 12.8 g/dL (11.7-16.4); WHITE BLOOD COUNT 11.2 x10^3/uL (3.4-10)
[2016-11-24 05:20] LABS: BLOOD UREA NITROGEN 8 mg/dL (7-18)
[2016-11-24 05:25] LABS: ASPARTATE AMINO TRANSFERASE 16 U/L (15-37)
[2016-11-24] MEDS: morphine SULFATE 10 MG/ML, 1ML IVPush PRN (06:25)
[2016-11-24 07:56] VITALS: BP 116/62
[2016-11-24] MEDS: AMLODIPINE 5 MG TABLET PO SCH (08:08)
[2016-11-24] MEDS: PANTOPRAZOLE 40 MG IV IVPush SCH (08:08)
[2016-11-24] MEDS: CARVEDILOL 25 MG TABLET PO SCH ×2 (08:09→21:33)
[2016-11-24] MEDS: LOSARTAN 25MG TABLET PO SCH (08:10)
[2016-11-24] MEDS: ASPIRIN 81 MG TABLET EC PO SCH (08:10)
[2016-11-24] MEDS: HYDROCHLOROTHIAZIDE 25 MG TABLET PO SCH (08:10)
[2016-11-24] MEDS: BRIMONIDINE TARTRATE OPHTH 0.15%, 5ML EACHEYE SCH ×3 (08:21→21:33)
[2016-11-24] MEDS: SUCRALFATE 1 GM/10 ML UDC PO SCH ×4 (08:21→21:33)
[2016-11-24] MEDS: NS + 20MEQ KCL 1,000 ML IV SCH (10:14)
[2016-11-24 14:40] VITALS: BP 110/60
[2016-11-24] MEDS: HYDROcodone/APAP 5/325 TABLET PO PRN ×2 (14:46→22:48)
[2016-11-24] MEDS: ENOXAPARIN 40 MG/0.4 ML SQ SCH (16:23)
[2016-11-24 19:03] VITALS: BP 107/59
[2016-11-24] MEDS ORDERED: DIPHENOXYLATE/ATROPINE TABLET ONE (21:31)
[2016-11-24] MEDS: DIPHENOXYLATE/ATROPINE TABLET PO PRN (21:32)
[2016-11-24] MEDS: LOVASTATIN 40 MG TABLET PO SCH (21:33)
[2016-11-24] MEDS: LATANOPROST OPHTH 0.005%, 2.5ML EACHEYE SCH (21:33)
[2016-11-25 02:55] VITALS: BP 124/61
[2016-11-25 05:11] LABS: HEMOGLOBIN 11.4 g/dL (11.7-16.4); WHITE BLOOD COUNT 5.6 x10^3/uL (3.4-10)
[2016-11-25 05:17] LABS: ASPARTATE AMINO TRANSFERASE 18 U/L (15-37); BLOOD UREA NITROGEN 4 mg/dL (7-18)
[2016-11-25 07:46] VITALS: BP 123/68
[2016-11-25] MEDS: HYDROCHLOROTHIAZIDE 25 MG TABLET PO SCH ×2 (07:55→10:09)
[2016-11-25] MEDS: CARVEDILOL 25 MG TABLET PO SCH ×3 (07:55→20:24)
[2016-11-25] MEDS: AMLODIPINE 5 MG TABLET PO SCH ×2 (07:55→10:09)
[2016-11-25] MEDS: SUCRALFATE 1 GM/10 ML UDC PO SCH ×4 (07:55→20:24)
[2016-11-25] MEDS: ASPIRIN 81 MG TABLET EC PO SCH ×2 (07:55→10:09)
[2016-11-25] MEDS: LOSARTAN 25MG TABLET PO SCH ×2 (07:55→10:09)
[2016-11-25] MEDS: DIPHENOXYLATE/ATROPINE TABLET PO PRN (07:56)
[2016-11-25] MEDS: BRIMONIDINE TARTRATE OPHTH 0.15%, 5ML EACHEYE SCH ×3 (07:56→20:25)
[2016-11-25] MEDS: PANTOPRAZOLE 40 MG IV IVPush SCH (07:56)
[2016-11-25] MEDS: ONDANSETRON 2MG/ML, 2ML IVPush PRN (08:04)
[2016-11-25] MEDS: HYDROcodone/APAP 5/325 TABLET PO PRN ×3 (08:04→23:57)
[2016-11-25 13:41] VITALS: BP 135/57
[2016-11-25] MEDS ORDERED: POTASSIUM CHLORIDE 40 MEQ in SODIUM CHLORIDE 0.9% 500 ML IV ONE (16:30)
[2016-11-25] MEDS: ENOXAPARIN 40 MG/0.4 ML SQ SCH (18:09)
[2016-11-25 18:44] VITALS: BP 129/68
[2016-11-25] MEDS: LOVASTATIN 40 MG TABLET PO SCH (20:23)
[2016-11-25] MEDS: PANTOPROZOLE 40MG TABLET PO SCH (20:24)
[2016-11-25] MEDS: LATANOPROST OPHTH 0.005%, 2.5ML EACHEYE SCH (20:25)
[2016-11-26 00:10] VITALS: BP 136/81
[2016-11-26 05:16] LABS: HEMATOCRIT 37.6 % (34.6-47.8); HEMOGLOBIN 12.7 g/dL (11.7-16.4); WHITE BLOOD COUNT 4.3 x10^3/uL (3.4-10)
[2016-11-26 05:29] LABS: ASPARTATE AMINO TRANSFERASE 25 U/L (15-37); BLOOD UREA NITROGEN 4 mg/dL (7-18)
[2016-11-26] MEDS ORDERED: DIPHENOXYLATE/ATROPINE TABLET ONE (06:18)
[2016-11-26] MEDS: DIPHENOXYLATE/ATROPINE TABLET PO PRN (06:19)
[2016-11-26] MEDS: HYDROcodone/APAP 5/325 TABLET PO PRN ×3 (06:19→15:26)
[2016-11-26] MEDS: ONDANSETRON 2MG/ML, 2ML IVPush PRN ×3 (06:23→22:43)
[2016-11-26 07:23] VITALS: BP 135/69
[2016-11-26] MEDS ORDERED: PANTOPROZOLE 40MG TABLET PO SCH (07:30)
[2016-11-26] MEDS: ASPIRIN 81 MG TABLET EC PO SCH (07:31)
[2016-11-26] MEDS: SUCRALFATE 1 GM/10 ML UDC PO SCH ×4 (07:31→19:52)
[2016-11-26] MEDS: PANTOPROZOLE 40MG TABLET PO SCH ×2 (07:32→19:54)
[2016-11-26] MEDS: LOSARTAN 25MG TABLET PO SCH (07:32)
[2016-11-26] MEDS: AMLODIPINE 5 MG TABLET PO SCH ×2 (07:32→10:04)
[2016-11-26] MEDS: HYDROCHLOROTHIAZIDE 25 MG TABLET PO SCH (07:32)
[2016-11-26] MEDS: CARVEDILOL 25 MG TABLET PO SCH ×3 (07:32→19:53)
[2016-11-26] MEDS: BRIMONIDINE TARTRATE OPHTH 0.15%, 5ML EACHEYE SCH ×3 (07:38→19:52)
[2016-11-26] MEDS: MAALOX/HYOSCYAMINE/LIDOCAINE 45 ML BTL PO PRN (08:46)
[2016-11-26 13:29] VITALS: BP 105/51
[2016-11-26] MEDS ORDERED: PROMETHAZINE 25 MG/ML, 1ML IM PRN (15:30)
[2016-11-26] MEDS: OxyconTIN ER 10 MG TAB.ER PO SCH (17:51)
[2016-11-26] MEDS ORDERED: ENOXAPARIN 30 MG/0.3 ML SQ SCH (18:00)
[2016-11-26 18:38] VITALS: BP 125/64
[2016-11-26] MEDS: LATANOPROST OPHTH 0.005%, 2.5ML EACHEYE SCH (19:52)
[2016-11-26] MEDS: LOVASTATIN 40 MG TABLET PO SCH (19:54)
[2016-11-27 00:26] VITALS: BP 119/63
[2016-11-27] MEDS: ONDANSETRON 2MG/ML, 2ML IVPush PRN ×2 (05:01→16:10)
[2016-11-27] MEDS: OxyconTIN ER 10 MG TAB.ER PO SCH ×2 (06:04→18:05)
[2016-11-27] MEDS: DIPHENOXYLATE/ATROPINE TABLET PO PRN (06:16)
[2016-11-27 07:03] VITALS: BP 151/75
[2016-11-27] MEDS: morphine SULFATE 10 MG/ML, 1ML IVPush PRN (08:46)
[2016-11-27] MEDS: BRIMONIDINE TARTRATE OPHTH 0.15%, 5ML EACHEYE SCH ×3 (08:52→19:51)
[2016-11-27] MEDS ORDERED: POTASSIUM PHOSPHATE 22 MEQ in SODIUM CHLORIDE 0.9% 500 ML IV ONE (09:30)
[2016-11-27] MEDS: CARVEDILOL 25 MG TABLET PO SCH ×2 (09:35→19:52)
[2016-11-27] MEDS: PANTOPROZOLE 40MG TABLET PO SCH ×2 (09:35→19:52)
[2016-11-27] MEDS: AMLODIPINE 5 MG TABLET PO SCH (09:35)
[2016-11-27] MEDS: SUCRALFATE 1 GM/10 ML UDC PO SCH ×4 (09:35→19:52)
[2016-11-27] MEDS: LOSARTAN 25MG TABLET PO SCH (09:35)
[2016-11-27] MEDS: HYDROCHLOROTHIAZIDE 25 MG TABLET PO SCH (09:35)
[2016-11-27 14:30] VITALS: BP 101/54
[2016-11-27] MEDS: ENOXAPARIN 40 MG/0.4 ML SQ SCH (18:05)
[2016-11-27] MEDS ORDERED: OxyconTIN ER 15 MG TAB.ER PO SCH (18:30)
[2016-11-27] MEDS ORDERED: ACETAMINOPHEN 325 MG TABLET PO PRN (19:00)
[2016-11-27] MEDS ORDERED: DOCUSATE 100 MG CAPSULE PO PRN (19:00)
[2016-11-27] MEDS ORDERED: LABETALOL 5MG/ML, 20ML IVPush PRN (19:00)
[2016-11-27] MEDS ORDERED: BISACODYL 10 MG SUPP PR PRN (19:00)
[2016-11-27] MEDS ORDERED: POLYETHYLENE GLYCOL 17 GM PACKET PO PRN (19:00)
[2016-11-27 19:50] VITALS: BP 104/56
[2016-11-27] MEDS: LATANOPROST OPHTH 0.005%, 2.5ML EACHEYE SCH (19:51)
[2016-11-27] MEDS: LOVASTATIN 40 MG TABLET PO SCH (19:52)
[2016-11-28 01:40] VITALS: BP 118/61
[2016-11-28] MEDS: OxyconTIN ER 15 MG TAB.ER PO SCH ×2 (04:26→16:11)
[2016-11-28] MEDS: SUCRALFATE 1 GM/10 ML UDC PO SCH ×4 (06:26→20:15)
[2016-11-28 07:10] VITALS: BP 127/61
[2016-11-28] MEDS: SENNA/DOCUSATE TABLET PO SCH (09:00)
[2016-11-28] MEDS: BRIMONIDINE TARTRATE OPHTH 0.15%, 5ML EACHEYE SCH ×3 (09:00→20:14)
[2016-11-28] MEDS: morphine SULFATE 10 MG/ML, 1ML IVPush PRN ×2 (09:14→14:54)
[2016-11-28] MEDS: PANTOPROZOLE 40MG TABLET PO SCH ×2 (09:16→20:15)
[2016-11-28] MEDS: AMLODIPINE 5 MG TABLET PO SCH (09:16)
[2016-11-28] MEDS: LOSARTAN 25MG TABLET PO SCH (09:16)
[2016-11-28] MEDS: HYDROCHLOROTHIAZIDE 25 MG TABLET PO SCH (09:16)
[2016-11-28] MEDS: CARVEDILOL 25 MG TABLET PO SCH ×2 (09:17→20:15)
[2016-11-28] MEDS: HYDROcodone/APAP 5/325 TABLET PO PRN (10:45)
[2016-11-28 14:46] VITALS: BP 111/60
[2016-11-28] MEDS: ENOXAPARIN 40 MG/0.4 ML SQ SCH (18:00)
[2016-11-28 19:12] VITALS: BP 102/57
[2016-11-28] MEDS: LATANOPROST OPHTH 0.005%, 2.5ML EACHEYE SCH (20:14)
[2016-11-28] MEDS: LOVASTATIN 40 MG TABLET PO SCH (20:15)
[2016-11-29 01:22] VITALS: BP 149/62
[2016-11-29] MEDS: OxyconTIN ER 20 MG TAB.ER PO SCH ×2 (04:10→16:20)
[2016-11-29] MEDS: HYDROcodone/APAP 5/325 TABLET PO PRN ×2 (05:31→10:23)
[2016-11-29] MEDS: SUCRALFATE 1 GM/10 ML UDC PO SCH ×4 (05:31→21:14)
[2016-11-29 07:27] VITALS: BP 152/71
[2016-11-29] MEDS: morphine SULFATE 10 MG/ML, 1ML IVPush PRN (08:06)
[2016-11-29] MEDS: CARVEDILOL 25 MG TABLET PO SCH ×2 (10:21→21:00)
[2016-11-29] MEDS: BRIMONIDINE TARTRATE OPHTH 0.15%, 5ML EACHEYE SCH ×3 (10:21→21:14)
[2016-11-29] MEDS: LOSARTAN 25MG TABLET PO SCH (10:23)
[2016-11-29] MEDS: PANTOPROZOLE 40MG TABLET PO SCH ×2 (10:23→21:15)
[2016-11-29] MEDS: AMLODIPINE 5 MG TABLET PO SCH (10:23)
[2016-11-29] MEDS: HYDROCHLOROTHIAZIDE 25 MG TABLET PO SCH (10:23)
[2016-11-29] MEDS: SENNA/DOCUSATE TABLET PO SCH (10:24)
[2016-11-29 11:36] LABS: HEMATOCRIT 39.3 % (34.6-47.8); HEMOGLOBIN 12.9 g/dL (11.7-16.4); WHITE BLOOD COUNT 5.4 x10^3/uL (3.4-10)
[2016-11-29 11:43] LABS: BLOOD UREA NITROGEN 15 mg/dL (7-18)
[2016-11-29 11:47] LABS: ASPARTATE AMINO TRANSFERASE 36 U/L (15-37)
[2016-11-29 13:07] VITALS: BP 129/66
[2016-11-29] MEDS: LIDODERM 5% PATCH TD SCH (13:27)
[2016-11-29] MEDS: MEGESTROL ORAL.SUSP 40 MG/ML PO SCH (13:28)
[2016-11-29] MEDS: ENOXAPARIN 40 MG/0.4 ML SQ SCH (17:38)
[2016-11-29] MEDS ORDERED: ERGOCALCIFEROL 50,000 UNIT CAPSULE PO SCH (19:30)
[2016-11-29 19:36] VITALS: BP 95/59
[2016-11-29] MEDS: LATANOPROST OPHTH 0.005%, 2.5ML EACHEYE SCH (21:14)
[2016-11-29] MEDS: LOVASTATIN 40 MG TABLET PO SCH (21:15)
[2016-11-30 01:12] VITALS: BP 100/52
[2016-11-30] MEDS: OxyconTIN ER 20 MG TAB.ER PO SCH ×2 (04:11→17:14)
[2016-11-30 06:55] VITALS: BP 138/70
[2016-11-30] MEDS: SUCRALFATE 1 GM/10 ML UDC PO SCH ×4 (07:51→20:37)
[2016-11-30] MEDS ORDERED: ERGOCALCIFEROL 50,000 UNIT CAPSULE PO SCH (09:00)
[2016-11-30] MEDS: ONDANSETRON 2MG/ML, 2ML IVPush PRN (09:27)
[2016-11-30] MEDS: BRIMONIDINE TARTRATE OPHTH 0.15%, 5ML EACHEYE SCH ×3 (09:27→20:36)
[2016-11-30] MEDS: PANTOPROZOLE 40MG TABLET PO SCH ×2 (09:31→20:37)
[2016-11-30] MEDS: MEGESTROL ORAL.SUSP 40 MG/ML PO SCH (09:31)
[2016-11-30] MEDS: CARVEDILOL 25 MG TABLET PO SCH (09:31)
[2016-11-30] MEDS: HYDROCHLOROTHIAZIDE 25 MG TABLET PO SCH (09:31)
[2016-11-30] MEDS: LOSARTAN 25MG TABLET PO SCH (09:31)
[2016-11-30] MEDS: SENNA/DOCUSATE TABLET PO SCH (09:31)
[2016-11-30] MEDS: AMLODIPINE 5 MG TABLET PO SCH (09:31)
[2016-11-30] MEDS: LIDODERM 5% PATCH TD SCH (13:09)
[2016-11-30 13:50] VITALS: BP 89/56
[2016-11-30 17:12] VITALS: BP 145/76
[2016-11-30] MEDS: ENOXAPARIN 40 MG/0.4 ML SQ SCH (17:14)
[2016-11-30 18:08] LABS: OCCBLD OBC PASS
[2016-11-30] MEDS: GABAPENTIN 100 MG CAPSULE PO SCH ×2 (18:26→20:37)
[2016-11-30 19:12] VITALS: BP 90/48
[2016-11-30] MEDS: CARVEDILOL 12.5 MG TABLET PO SCH (20:33)
[2016-11-30] MEDS: LATANOPROST OPHTH 0.005%, 2.5ML EACHEYE SCH (20:37)
[2016-11-30] MEDS: LOVASTATIN 40 MG TABLET PO SCH (20:37)
[2016-12-01] MEDS: OxyconTIN ER 20 MG TAB.ER PO SCH ×2 (04:00→16:17)
[2016-12-01 04:12] VITALS: BP 112/62
[2016-12-01] MEDS: GABAPENTIN 100 MG CAPSULE PO SCH ×4 (06:06→20:30)
[2016-12-01 07:37] VITALS: BP 160/73
[2016-12-01] MEDS: SUCRALFATE 1 GM/10 ML UDC PO SCH ×4 (07:50→20:30)
[2016-12-01] MEDS: MEGESTROL ORAL.SUSP 40 MG/ML PO SCH (09:00)
[2016-12-01] MEDS: CARVEDILOL 12.5 MG TABLET PO SCH ×2 (09:19→20:30)
[2016-12-01] MEDS: PANTOPROZOLE 40MG TABLET PO SCH ×2 (09:20→20:30)
[2016-12-01] MEDS: HYDROCHLOROTHIAZIDE 25 MG TABLET PO SCH (09:20)
[2016-12-01] MEDS: SENNA/DOCUSATE TABLET PO SCH (09:20)
[2016-12-01] MEDS: LOSARTAN 25MG TABLET PO SCH (09:21)
[2016-12-01] MEDS: BRIMONIDINE TARTRATE OPHTH 0.15%, 5ML EACHEYE SCH ×3 (09:21→20:30)
[2016-12-01] MEDS: LIDODERM 5% PATCH TD SCH (14:29)
[2016-12-01 15:10] VITALS: BP 107/68
[2016-12-01] MEDS ORDERED: D5%-0.45% NACL 1,000 ML IV ONE (16:30)
[2016-12-01] MEDS: ENOXAPARIN 40 MG/0.4 ML SQ SCH (17:08)
[2016-12-01] MEDS: MULTIVITAMIN 1 TABLET PO SCH (17:58)
[2016-12-01 19:50] VITALS: BP 100/57
[2016-12-01] MEDS: LATANOPROST OPHTH 0.005%, 2.5ML EACHEYE SCH (20:30)
[2016-12-01] MEDS: LOVASTATIN 40 MG TABLET PO SCH (20:30)
[2016-12-01] MEDS: ONDANSETRON 2MG/ML, 2ML IVPush PRN (20:41)
[2016-12-02 00:35] VITALS: BP 90/42
[2016-12-02] MEDS ORDERED: OxyconTIN ER 20 MG TAB.ER PO SCH (04:00)
[2016-12-02 06:03] LABS: HEMATOCRIT 37.5 % (34.6-47.8); HEMOGLOBIN 12.6 g/dL (11.7-16.4); WHITE BLOOD COUNT 6.9 x10^3/uL (3.4-10)
[2016-12-02 06:16] LABS: BLOOD UREA NITROGEN 13 mg/dL (7-18)
[2016-12-02 06:19] LABS: ASPARTATE AMINO TRANSFERASE 13 U/L (15-37)
[2016-12-02] MEDS: GABAPENTIN 100 MG CAPSULE PO SCH ×3 (06:28→15:47)
[2016-12-02] MEDS: SUCRALFATE 1 GM/10 ML UDC PO SCH ×4 (07:00→21:15)
[2016-12-02 07:55] VITALS: BP 172/75
[2016-12-02] MEDS: SENNA/DOCUSATE TABLET PO SCH (08:47)
[2016-12-02] MEDS: MEGESTROL ORAL.SUSP 40 MG/ML PO SCH (08:48)
[2016-12-02] MEDS: MULTIVITAMIN 1 TABLET PO SCH (08:57)
[2016-12-02] MEDS: PANTOPROZOLE 40MG TABLET PO SCH ×2 (08:57→21:14)
[2016-12-02] MEDS: HYDROCHLOROTHIAZIDE 25 MG TABLET PO SCH (08:58)
[2016-12-02] MEDS: LOSARTAN 25MG TABLET PO SCH (08:58)
[2016-12-02] MEDS: CARVEDILOL 12.5 MG TABLET PO SCH (08:58)
[2016-12-02] MEDS: BRIMONIDINE TARTRATE OPHTH 0.15%, 5ML EACHEYE SCH ×3 (08:59→20:42)
[2016-12-02] MEDS: OxyconTIN ER 10 MG TAB.ER PO SCH ×3 (09:10→21:20)
[2016-12-02 12:22] VITALS: BP 114/61
[2016-12-02] MEDS: LIDODERM 5% PATCH TD SCH (13:23)
[2016-12-02] MEDS: ENOXAPARIN 40 MG/0.4 ML SQ SCH (18:03)
[2016-12-02 18:53] VITALS: BP 131/67
[2016-12-02] MEDS ORDERED: OxyconTIN ER 10 MG TAB.ER ONE (20:38)
[2016-12-02] MEDS ORDERED: DOCUSATE 100 MG CAPSULE ONE (21:10)
[2016-12-02] MEDS: LATANOPROST OPHTH 0.005%, 2.5ML EACHEYE SCH (21:13)
[2016-12-02] MEDS ORDERED: PROMETHAZINE 25 MG/ML, 1ML IM PRN (21:30)
[2016-12-02] MEDS ORDERED: LABETALOL 5MG/ML, 20ML IVPush PRN (21:30)
[2016-12-02] MEDS ORDERED: morphine SULFATE 10 MG/ML, 1ML IVPush PRN (21:30)
[2016-12-02] MEDS ORDERED: BISACODYL 10 MG SUPP PR PRN (21:30)
[2016-12-02] MEDS ORDERED: ONDANSETRON 2MG/ML, 2ML IVPush PRN (21:30)
[2016-12-02] MEDS ORDERED: POLYETHYLENE GLYCOL 17 GM PACKET PO PRN (21:30)
[2016-12-02] MEDS ORDERED: DOCUSATE 100 MG CAPSULE PO PRN (21:30)
[2016-12-02] MEDS ORDERED: DIPHENOXYLATE/ATROPINE TABLET PO PRN (21:30)
[2016-12-02] MEDS ORDERED: HYDROcodone/APAP 5/325 TABLET PO PRN (21:30)
[2016-12-02] MEDS ORDERED: ACETAMINOPHEN 325 MG TABLET PO PRN (21:30)
[2016-12-03 00:29] VITALS: BP 109/58
[2016-12-03] MEDS: GABAPENTIN 100 MG CAPSULE PO SCH ×4 (06:06→21:28)
[2016-12-03 07:53] VITALS: BP 147/73
[2016-12-03] MEDS ORDERED: LOSARTAN 25MG TABLET PO SCH ×2 (09:00)
[2016-12-03] MEDS: SUCRALFATE 1 GM/10 ML UDC PO SCH ×4 (09:02→21:27)
[2016-12-03] MEDS: BRIMONIDINE TARTRATE OPHTH 0.15%, 5ML EACHEYE SCH ×3 (09:02→21:26)
[2016-12-03] MEDS: MEGESTROL ORAL.SUSP 40 MG/ML PO SCH (09:03)
[2016-12-03] MEDS: HYDROCHLOROTHIAZIDE 25 MG TABLET PO SCH (09:04)
[2016-12-03] MEDS: CARVEDILOL 12.5 MG TABLET PO SCH ×2 (09:04→21:28)
[2016-12-03] MEDS: MULTIVITAMIN 1 TABLET PO SCH (09:04)
[2016-12-03] MEDS: LOSARTAN 25MG TABLET PO SCH (09:04)
[2016-12-03] MEDS: OxyconTIN ER 10 MG TAB.ER PO SCH ×2 (09:05→21:28)
[2016-12-03] MEDS: SENNA/DOCUSATE TABLET PO SCH (09:05)
[2016-12-03] MEDS ORDERED: LIDODERM 5% PATCH TD SCH (12:30)
[2016-12-03 12:53] VITALS: BP 112/54
[2016-12-03] MEDS ORDERED: ENOXAPARIN 40 MG/0.4 ML SQ SCH (18:00)
[2016-12-03 19:36] VITALS: BP 121/69
[2016-12-03] MEDS ORDERED: LOVASTATIN 40 MG TABLET PO SCH (21:00)
[2016-12-03] MEDS: LATANOPROST OPHTH 0.005%, 2.5ML EACHEYE SCH (21:27)
[2016-12-03] MEDS: PANTOPROZOLE 40MG TABLET PO SCH (21:28)
[2016-12-04 02:11] VITALS: BP 111/67
[2016-12-04] MEDS: GABAPENTIN 100 MG CAPSULE PO SCH ×2 (06:39→12:15)
[2016-12-04 07:42] VITALS: BP 136/62
[2016-12-04] MEDS: SENNA/DOCUSATE TABLET PO SCH (09:00)
[2016-12-04] MEDS ORDERED: OXYC10TA47 PO (09:01)
[2016-12-04] MEDS ORDERED: HYDR25TA6 PO (09:01)
[2016-12-04] MEDS ORDERED: MULT1TAB60 PO (09:01)
[2016-12-04] MEDS ORDERED: Lidoderm 5% Patch TD (09:01)
[2016-12-04] MEDS ORDERED: CARV12.543 PO (09:01)
[2016-12-04] MEDS ORDERED: POLY17PO5 PO (09:01)
[2016-12-04] MEDS ORDERED: MEGE400O2 PO (09:01)
[2016-12-04] MEDS ORDERED: ERGO500017 PO (09:01)
[2016-12-04] MEDS ORDERED: GABA300C10 PO (09:01)
[2016-12-04] MEDS ORDERED: PANT40TA5 PO (09:01)
[2016-12-04] MEDS ORDERED: SENN1TAB7 PO (09:01)
[2016-12-04] MEDS: BRIMONIDINE TARTRATE OPHTH 0.15%, 5ML EACHEYE SCH (09:02)
[2016-12-04] MEDS: SUCRALFATE 1 GM/10 ML UDC PO SCH ×2 (09:03→12:15)
[2016-12-04] MEDS: MEGESTROL ORAL.SUSP 40 MG/ML PO SCH (09:03)
[2016-12-04] MEDS: CARVEDILOL 12.5 MG TABLET PO SCH (09:04)
[2016-12-04] MEDS: HYDROCHLOROTHIAZIDE 25 MG TABLET PO SCH (09:04)
[2016-12-04] MEDS: LOSARTAN 25MG TABLET PO SCH (09:05)
[2016-12-04] MEDS: MULTIVITAMIN 1 TABLET PO SCH (09:05)
[2016-12-04] MEDS: PANTOPROZOLE 40MG TABLET PO SCH (09:05)
[2016-12-04] MEDS: OxyconTIN ER 10 MG TAB.ER PO SCH (09:07)
[2016-12-04] MEDS ORDERED: HYDR-3240 PO (09:09)
[2016-12-04 09:29] LABS: HEP B SURF. AB < 3.1 mIU/mL (0.0-10.0)
[2016-12-04 13:14] VITALS: BP 96/53
[2016-12-06] MEDS ORDERED: ERGOCALCIFEROL 50,000 UNIT CAPSULE PO SCH (21:00)
== END 2016-12-04 15:15 | disposition home health service (06) | DRG 438 ==
LOC: ED 15:22 → EDIP 16:45 → 3NE 17:32 → UNDODISIN 12-02 15:19
PROVIDERS: ADMIT Family Medicine; ATTEND Family Medicine
DX: K86.2 Cyst of pancreas (principal); E43 Unspecified severe protein-calorie malnutrition; E87.1 Hypo-osmolality and hyponatremia; Z68.1 Body mass index [BMI] 19.9 or less, adult; R11.2 Nausea with vomiting, unspecified; K21.9 Gastro-esophageal reflux disease without esophagitis; K29.70 Gastritis, unspecified, without bleeding; K29.80 Duodenitis without bleeding; Z88.8 Allergy status to other drugs, medicaments and biological substances; E55.9 Vitamin D deficiency, unspecified; E78.5 Hyperlipidemia, unspecified; E87.6 Hypokalemia; H40.9 Unspecified glaucoma; I11.9 Hypertensive heart disease without heart failure; I25.10 Atherosclerotic heart disease of native coronary artery without angina pectoris; K44.9 Diaphragmatic hernia without obstruction or gangrene; K57.30 Diverticulosis of large intestine without perforation or abscess without bleeding; N28.1 Cyst of kidney, acquired; Z66 Do not resuscitate; Z79.82 Long term (current) use of aspirin; Z79.899 Other long term (current) drug therapy; Z82.49 Family history of ischemic heart disease and other diseases of the circulatory system; Z83.3 Family history of diabetes mellitus; Z90.49 Acquired absence of other specified parts of digestive tract; R10.9 Unspecified abdominal pain
CPT/HCPCS: 36415; 74000; 74177; 74181; 78226; 80053; 81003; 82272; 82306; 82533; 82607; 83690; 83735; 84100; 84439; 84443; 85025; 86705; 86706; 86709; 86803; 87040; 87324; 87340; 96361; 96374; 96375; J1170; J1650; J2405; J2550; J3480; Q9967; A9537; C9113; C9898; J2270; J7030; J7040